=== PATIENT | female | born 1960 | race Caucasian/White ===

== ENCOUNTER 2023-05-13 06:01 | Day surgery (SDC) | payer BC ==
[~2023-05-13 06:01] MED LIST: Lactated Ringers 1,000 ML IV SCH
[2023-05-13] MEDS ORDERED: Bupivacaine 0.25% 30 ML SDV ONE (06:03)
[2023-05-13] MEDS ORDERED: Lidocaine 2% 5 ML SDV ONE (06:22)
[2023-05-13] MEDS ORDERED: Ropivacaine 0.5% 5 MG/ML 30 ML SDV ONE (06:22)
[2023-05-13] MEDS ORDERED: Dexmedetomidine 200 MCG/2 ML SDV ONE (06:25)
[2023-05-13] MEDS ORDERED: propofoL 50 ML ONE (06:25)
[2023-05-13] MEDS ORDERED: Water For Injection, Sterile 20 ML ONE (06:26)
[2023-05-13] MEDS ORDERED: ceFAZolin 2 GM in Sodium Chloride 0.9% 50 ML IV ONE (07:00)
[2023-05-13] MEDS ORDERED: HYDROmorphone 1 MG/ML Syringe IVPUSH PRN (07:07)
[2023-05-13] MEDS ORDERED: Albuterol 0.083% 2.5 MG/3 ML Neb Soln NEB PRN (07:07)
[2023-05-13] MEDS ORDERED: fentaNYL 50 MCG/ML SDV IVPUSH PRN (07:07)
[2023-05-13] MEDS ORDERED: droPERidol 5 MG/2 ML SDV IVPUSH PRN (07:07)
[2023-05-13] MEDS ORDERED: Metoclopramide 10 MG/2 ML SDV IVPUSH PRN (07:07)
[2023-05-13] MEDS ORDERED: Naloxone 0.4 MG/ML SDV IVPUSH PRN (07:07)
[2023-05-13] MEDS ORDERED: Morphine 2 MG/ML SYRINGE IVPUSH PRN (07:07)
[2023-05-13] MEDS ORDERED: Ondansetron 4 MG/2 ML SDV IVPUSH PRN (07:07)
== END 2023-05-13 07:59 | disposition home or self-care (01) ==
LOC: MW.SDS 06:01
PROVIDERS: ATTEND Orthopaedic Surgery
DX: M65.341 Trigger finger, right ring finger (principal)
CPT/HCPCS: 26055; 64450; J2704; J2795; J3490; J7120; 01810

== ENCOUNTER 2023-07-17 11:11 | Emergency (ER) | payer BC ==
[2023-07-17] MEDS ORDERED: Ibuprofen 600 MG Tab PO ONE (12:00)
[2023-07-17] MEDS ORDERED: Acetaminophen 500 MG Tab PO ONE (12:00)
[2023-07-17 12:40] LABS: CORONAVIRUS COVID-19 NAA POSITIVE (NEGATIVE); INFLUENZA A NAA NEGATIVE (NEGATIVE); INFLUENZA B NAA NEGATIVE (NEGATIVE)
== END 2023-07-17 13:17 | disposition home or self-care (01) ==
LOC: MW.ED 11:11
DX: U07.1 COVID-19 (principal)
CPT/HCPCS: 0240U; 71046; 93005; 99284; A9270; 99283

== ENCOUNTER 2024-01-02 11:35 | Emergency (ER) | payer BC ==
[2024-01-02 11:53] LABS: APPEARANCE,URINE SLT CLOUDY; BILIRUBIN,URINE NEGATIVE (NEGATIVE); COLOR,URINE YELLOW; GLUCOSE,URINE NEGATIVE (NEGATIVE); KETONES,URINE NEGATIVE (NEGATIVE); LEUKOCYTE ESTERASE,URINE MODERATE (NEGATIVE); NITRITE,URINE POSITIVE (NEGATIVE); OCCULT BLOOD,URINE TRACE-INTACT (NEGATIVE); PROTEIN,URINE TRACE mg/dL (NEGATIVE)
[2024-01-02 12:12] LABS: BACTERIA,URINE 3+ (NEGATIVE); EPITHELIAL CELLS,URINE RARE (NONE-FEW); WBC,URINE 18-25 (0-5/HPF)
[2024-01-02] MEDS: Cephalexin 500 MG Cap PO STA (12:51)
== END 2024-01-02 12:53 | disposition home or self-care (01) ==
LOC: MW.ED 11:35
DX: N30.01 Acute cystitis with hematuria (principal); Z75.8 Other problems related to medical facilities and other health care
CPT/HCPCS: 81001; 81003; 87086; 99283; A9270

== ENCOUNTER 2024-01-11 11:47 | Emergency (ER) | payer BC ==
[2024-01-11 12:21] LABS: APPEARANCE,URINE SLT CLOUDY; COLOR,URINE ORANGE; GLUCOSE,URINE 250 mg/dL (NEGATIVE); KETONES,URINE TRACE mg/dL (NEGATIVE); LEUKOCYTE ESTERASE,URINE MODERATE (NEGATIVE); NITRITE,URINE POSITIVE (NEGATIVE); OCCULT BLOOD,URINE NEGATIVE (NEGATIVE); PROTEIN,URINE >=300 mg/dL (NEGATIVE); UROBILINOGEN,URINE >=8.0 EU/dL (<2.0)
[2024-01-11 12:32] LABS: BILIRUBIN,URINE SMALL (NEGATIVE)
[2024-01-11 12:33] LABS: BACTERIA,URINE RARE (NEGATIVE); EPITHELIAL CELLS,URINE RARE (NONE-FEW); RBC,URINE 0-2 (0-2/HPF)
== END 2024-01-11 12:55 | disposition left against medical advice (07) ==
LOC: MW.ED 11:47
DX: N30.90 Cystitis, unspecified without hematuria (principal); Z86.19 Personal history of other infectious and parasitic diseases; Z75.8 Other problems related to medical facilities and other health care
CPT/HCPCS: 81001; 81003; 87086; 99283